=== PATIENT | male | born 1960 | race American Indian/Alaskan Native ===

== ENCOUNTER 2018-07-05 15:19 | Emergency (ER) | payer MEDICARE, BC ==
[2018-07-05 15:20] VITALS: BMI 27.3
[2018-07-05 15:33] VITALS: TEMP 98.9
--- NOTE | 2018-07-05 15:54 | ED PDOC ---
Arrival/HPI - General Historian: Patient - History of Present Illness Narrative History of Present Illness (Text): 07/05/18 15:51 57 year old male with a past medical history of hypertension, hypercholesterolemia, diabetes, pvd, and dilated cardiomyopathy presents to the emergency room with right and left lower quadrant abdominal pain for the past week. Patient describes it as sharp in nature and rates it a 8/10 in severity. Patient also reports an increase in pain after eating. Patient admits to constipation as well for the past three days. Of note, patient recently was placed back on Metformin after being off the medicine for a while. PMD: Dr. Montoya Medical history: htn, hpercholesterolemia, dm, pvd, dilated cardiomyopathy Allergies: Shellfish Surgical hx:Back surgery Time/Duration: 1 week Symptom Onset: Gradual Symptom Course: Unchanged Quality: Stabbing Severity Level: 8 Activities at Onset: Rest Context: Sitting <Arvind Barraza - Last Filed: 07/05/18 20:26> Past Medical History - Provider Review Nursing Documentation Reviewed: Yes - Past History Past History: Non-Contributing - Infectious Disease Hx of Infectious Diseases: None - Cardiac Hx Cardiac Disorders: No Hx Pacemaker: No - Pulmonary Hx Respiratory Disorders: No - Neurological Hx Neurological Disorder: No Hx Dementia: No Hx Paralysis: No - HEENT Hx HEENT Disorder: No - Renal Hx Renal Disorder: No - Endocrine/Metabolic Hx Endocrine Disorders: Yes Hx Diabetes Mellitus Type 2: Yes - Hematological/Oncological Hx Blood Disorders: No Hx Blood Transfusions: No - Integumentary Hx Dermatological Disorder: No - Musculoskeletal/Rheumatological Hx Musculoskeletal Disorders: Yes - Gastrointestinal Hx Gastrointestinal Disorders: No - Genitourinary/Gynecological Hx Genitourinary Disorders: No - Psychiatric Hx Psychophysiologic Disorder: No Hx Emotional Abuse: No Hx Physical Abuse: No Hx Substance Use: Yes (marijuana) - Anesthesia Hx Anesthesia: Yes Hx Anesthesia Reactions: No Hx Malignant Hyperthermia: No - Suicidal Assessment Feels Threatened In Home Enviroment: No <Arvind Barraza - Last Filed: 07/05/18 20:26> Family/Social History - Physician Review Nursing Documentation Reviewed: Yes Family/Social History: No Known Family HX Smoking Status: Former Smoker Hx Alcohol Use: Yes (SOCIAL) Hx Substance Use: Yes (marijuana) <Arvind Barraza - Last Filed: 07/05/18 20:26> Allergies/Home Meds <Christi,Arvind - Last Filed: 07/05/18 20:26> <Sree Tyler DO - Last Filed: 07/06/18 15:47> Allergies/Adverse Reactions: Allergies shellfish derived Adverse Reaction (Verified 07/05/18 15:33) ANGIOEDEMA Home Medications: Home Meds Medication Instructions Recorded Confirmed Cilostazol [Pletal] 100 mg PO BID 07/26/16 08/29/16 Ergocalciferol (Vitamin D2) 1.25 mg PO QWK 07/26/16 08/29/16 [Vitamin D] Review of Systems - Physician Review All systems were reviewed & negative as marked: Yes - Review of Systems Constitutional: Normal. absent: Fatigue Eyes: Normal, Vision Changes ENT: Normal. absent: Hearing Changes, Tinnitus Respiratory: Normal. absent: SOB, Cough, Sputum Cardiovascular: Normal. absent: Chest Pain, Palpitations, Syncope Gastrointestinal: Abdominal Pain, Constipation (x 3 days). absent: Nausea, Vomiting Musculoskeletal: Normal. absent: Arthralgias Skin: Normal. absent: Rash, Pruritis Neurological: Normal. absent: Headache, Dizziness Endocrine: Normal. absent: Diaphoresis, Polyuria Hemo/Lymphatic: Normal. absent: Adenopathy, Easy Bleeding Psychiatric: Normal. absent: Anxiety, Depression <Arvind Barraza - Last Filed: 07/05/18 20:26> Physical Exam Vital Signs Reviewed: Yes Vital Signs Temp Pulse Resp BP Pulse Ox 07/05/18 15:28 98.9 F 100 H 19 128/71 99 Temperature: Afebrile Blood Pressure: Normal Pulse: Tachycardic Respiratory Rate: Normal Appearance: Positive for: Well-Appearing, Non-Toxic, Comfortable Pain Distress: Mild Mental Status: Positive for: Alert and Oriented X 3. No: Confused, Agitated - Systems Exam Head: Present: Atraumatic. No: Normocephalic, Abrasion Pupils: Present: PERRL. No: Sluggish Extroacular Muscles: Present: EOMI. No: Gaze Palsy Conjunctiva: Present: Normal. No: Injected Mouth: Present: Moist Mucous Membranes. No: Dry, Normal Teeth Neck: Present: Normal Range of Motion, JVD. No: Meningeal Signs, Lymphadenopathy Respiratory/Chest: Present: Clear to Auscultation, Good Air Exchange. No: Wheez es, Decreased Breath Sounds Cardiovascular: Present: Regular Rate and Rhythm, Normal S1, S2. No: Murmurs, Tachycardic Abdomen: Present: Tenderness (LLQ AND RLQ), Normal Bowel Sounds. No: Distention, McBurney's Point Tender Upper Extremity: Present: Normal Inspection. No: Cyanosis, Edema Lower Extremity: Present: Normal Inspection. No: Edema, Marcy's Sign Neurological: Present: CN II-XII Intact, Speech Normal. No: Normal Cerebellar Funct Skin: Present: Dry, Normal Color. No: Rashes, Cold Psychiatric: Present: Alert, Oriented x 3, Normal Insight <Arvind Barraza - Last Filed: 07/05/18 20:26> Vital Signs Temp Pulse Resp BP Pulse Ox 07/05/18 15:28 98.9 F 100 H 19 128/71 99 <Sree Tyler DO - Last Filed: 07/06/18 15:47> Medical Decision Making ED Course and Treatment: 07/05/18 15:58 57 year old male with a past medical history of hypertension, hypercholesterolemia, diabetes, pvd, and dilated cardiomyopathy presents to the emergency room with right and left lower quadrant abdominal pain for the past week. Pancreatitis vs. Diverticulitis vs. Appendictis Plan: CBC CMP U/A Ab/pelvis ct with IV contrast Lipase IV Toradol <Arvind Barraza - Last Filed: 07/05/18 20:26> ED Course and Treatment: 07/05/18 16:36 Clare Cantu is a 57 year old male who presents to the emergency department with a complaint of 1 week duration lower abdominal pain. In agreement with residents note, which includes further HPI details. Patient was seen and evaluated with resident, came up with plan and treatment together. - RAD Interpretation Radiology Orders: 07/05/18 15:59 ABDOMEN & PELVIS [ABD & PELVIS IV CONTRAST ONLY] [CT] Stat - Medication Orders Current Medication Orders: Sodium Chloride (Sodium Chloride 0.9%) 1,000 mls @ 125 mls/hr IV .Q8H ONE Stop: 07/06/18 00:05 Ketorolac Tromethamine (Toradol) 15 mg IVP STAT STA Stop: 07/05/18 16:01 Discontinued Medications Sodium Chloride (Sodium Chloride 0.9%) 1,000 mls @ 250 mls/hr IV .Q4H ONE Stop: 07/05/18 20:05 <Sree Tyler DO - Last Filed: 07/06/18 15:47> - PA / TIPPLE TENDER / Resident Statement JACINTA has reviewed & agrees with the documentation as recorded. JACINTA has examined the patient and agrees with the treatment plan. <Sree Tyler DO - Last Filed: 07/06/18 15:47> Disposition/Present on Arrival - Present on Arrival Any Indicators Present on Arrival: Yes History of DVT/PE: No History of Uncontrolled Diabetes: Yes Urinary Catheter: No History of Decub. Ulcer: No History Surgical Site Infection Following: None - Disposition Have Diagnosis and Disposition been Completed?: Yes Disposition Time: 18:30 Patient Plan: Discharge <Arvind Barraza - Last Filed: 07/05/18 20:26> - Disposition Disposition Time: 18:10 <Sree Tyler DO - Last Filed: 07/06/18 15:47> - Disposition Diagnosis: Constipation, UTI (urinary tract infection) Disposition: HOME/ ROUTINE Condition: GOOD Discharge Instructions (ExitCare): Constipation, Adult (DC), Asymptomatic Bacteriuria Additional Instructions: CLARE CANTU, thank you for letting us take care of you today. The emergency medical care you received today was directed at your acute symptoms. If you were prescribed any medication, please fill it and take as directed. It may take several days for your symptoms to resolve. Return to the Emergency Department if your symptoms worsen, do not improve, or if you have any other problems. Please contact your doctor or call one of the physicians/clinics you have been referred to that are listed on the Patient Visit Information form that is included in your discharge packet. Bring any paperwork you were given at discharge with you along with any medications you are taking to your follow up visit. Our treatment cannot replace ongoing medical care by a primary care provider outside of the emergency department. Thank you for allowing the [facility] team to be part of your care today. Follow up with your primary care doctor in 3-4 days for re-evaluation and further management. Prescriptions: Docusate [Colace] 100 mg PO Q8 PRN #20 cap PRN Reason: Constipation Nitrofurantoin Macrocrystals [Macrobid] 100 mg PO BID #10 cap Referrals: [facility], [Non-Staff] - Follow up with primary Forms: [employer] (Greenlandic)
[2018-07-05] MEDS ORDERED: Sodium Chloride 0.9% 1,000 ML IV ONE ×2 (16:06→16:07)
[2018-07-05 16:48] LABS: BASO # 0.05 K/mm3 (0.0-2.0); BASO % 0.6 % (0.0-3.0); EOS # 0.2 (0.0-0.7); EOS % 2.4 % (1.5-5.0); GRAN # 5.05 (1.4-6.5); GRAN % 57.4 % (50.0-68.0); HEMOGLOBIN 14.9 g/dL (14.0-18.0); LYMPH # 2.8 (1.2-3.4); LYMPH % 32.1 % (22.0-35.0); MEAN CELL VOLUME 88.2 fl (80.0-105.0); MEAN CORPUSCULAR HEMOGLOBIN 28.8 pg (25.0-35.0); MEAN CORPUSCULAR HGB CONC 32.7 g/dl (31.0-37.0); MEAN PLATELET VOLUME 11.1 fl (7.0-11.0); MONO # 0.7 (0.1-0.6); MONO % 7.5 % (1.0-6.0); RBC 5.17 10^6/uL (3.5-6.1); RED CELL DISTRIBUTION WIDTH 14.3 % (11.5-14.5); WHITE BLOOD COUNT 8.8 10^3/uL (4.5-11.0)
[2018-07-05 17:01] LABS: ALB/GLOB RATIO 1.1 (1.1-1.8); ALBUMIN 3.8 g/dL (3.0-4.8); ALT/SGPT 32 U/L (7-56); AST/SGOT 25 U/L (17-59); BLOOD UREA NITROGEN 13 mg/dL (7-21); CALCIUM 9.8 mg/dL (8.4-10.5); GFR NON-AFRICAN AMERICAN > 60; LIPASE 484 U/L (23-300)
[2018-07-05 17:10] LABS: PH,URINE 6.5 (4.7-8.0); URINE APPEARANCE CLEAR (CLEAR); URINE BILIRUBIN SMALL (NEGATIVE); URINE BLOOD TRACE-INTACT (NEGATIVE); URINE COLOR YELLOW (YELLOW); URINE GLUCOSE (UA) NEGATIVE (NEGATIVE); URINE LEUKOCYTE ESTERASE NEGATIVE Leu/uL (NEGATIVE); URINE PROTEIN >=300 mg/dL (<30 mg/dL)
[2018-07-05 17:22] LABS: URINE WBC 0 - 2 /hpf (0-6)
[2018-07-05 17:23] LABS: URINE BACTERIA MOD (NEG)
[2018-07-05] MEDS ORDERED: Iohexol 350 MG/100 ML VIAL ONE (17:27)
--- NOTE | 2018-07-05 18:10 | CT ---
Date of service: 07/05/2018 PROCEDURE: CT Abdomen and Pelvis with contrast HISTORY: diffuse abdominal pain COMPARISON: None. TECHNIQUE: Intravenous contrast dose: 100 cc Omnipaque 350 Radiation dose: Total exam DLP = 909.93 mGy-cm. This CT exam was performed using one or more of the following dose reduction techniques: Automated exposure control, adjustment of the mA and/or kV according to patient size, and/or use of iterative reconstruction technique. FINDINGS: LOWER THORAX: Unremarkable. LIVER: Unremarkable. No gross lesion or ductal dilatation. GALLBLADDER AND BILE DUCTS: Cholelithiasis without CT evidence of acute cholecystitis. Finding confirmed on prior abdominal ultrasound performed 12/13/2016 PANCREAS: Unremarkable. No gross lesion or ductal dilatation. SPLEEN: Unremarkable. ADRENALS: Unremarkable. No mass. KIDNEYS AND URETERS: Unremarkable. No hydronephrosis. No solid mass. VASCULATURE: Atherosclerotic calcification and mural plaque present no evidence of abdominal aortic aneurysm. BOWEL: Unremarkable. No obstruction. No gross mural thickening. APPENDIX: A normal appendix is visualized in it's entirety. PERITONEUM: Unremarkable. No free fluid. No free air. LYMPH NODES: Unremarkable. No enlarged lymph nodes. BLADDER: Decompressed urinary bladder. No gross abnormalities. REPRODUCTIVE: Penile prosthesis and associated para from nearly including reservoir noted. BONES: No acute fracture. Postoperative findings from laminectomy and fusion noted L3, L4, L5 and S1. No evidence of orthopedic hardware failure. OTHER FINDINGS: Small defect in the posterior lateral abdominal wall musculature on the left with herniation of fat into the subcutaneous tissues. This appears at the level of the midpole left kidney. The kidney is unaffected IMPRESSION: No acute findings related to/accounting for the clinical presentation. Cholelithiasis without CT evidence of acute cholecystitis. Similar findings identified previously. Additional benign and/or incidental findings described above.
[2018-07-05 18:40] VITALS: BP 124/77; PULSE 90; O2SAT 98
[2018-07-05 18:56] VITALS: RESP 20
== END 2018-07-05 18:43 | disposition home or self-care (01) ==
LOC: ED 15:19
DX: K59.00 Constipation, unspecified (principal); N39.0 Urinary tract infection, site not specified; I10 Essential (primary) hypertension; E78.00 Pure hypercholesterolemia, unspecified; E11.9 Type 2 diabetes mellitus without complications
CPT/HCPCS: 74177; 80053; 81001; 83690; 85025; 96361; 96374; 99284; J1885; J7030; Q9967

== ENCOUNTER 2018-07-15 15:18 | Inpatient (IN) | payer MEDICARE, BC ==
[2018-07-15 15:26] VITALS: BMI 26.7
--- NOTE | 2018-07-15 15:54 | ED PDOC ---
Arrival/HPI - General Chief Complaint: Abdominal Pain Time Seen by Provider: 07/15/18 15:32 Historian: Patient - History of Present Illness Narrative History of Present Illness (Text): 07/15/18 15:52 A 57 year old male, whose past medical history includes UTI, hypertension, hypercholesterolemia, diabetes, pvd, and dilated cardiomyopathy, presents to the emergency department complaining of abdominal pain and constipation for 1 week. Patient reports here was here not long ago for similar complaint. While here, patient had Abd/Pelvis CT and Urinalysis performed, and was diagnosed with a UTI and constipation. Patient was prescribed antibiotics to be taken for 5 days. However, patient states symptoms have not change, and last good bowel movement was approximately 10 days ago. Patient denies any diarrhea, or any other complai nts at this time. PMD: Dr. Goldman Past Medical History - Provider Review Nursing Documentation Reviewed: Yes - Past History Past History: Non-Contributing - Infectious Disease Hx of Infectious Diseases: None - Cardiac Hx Cardiac Disorders: No - Pulmonary Hx Respiratory Disorders: No - Neurological Hx Neurological Disorder: No - HEENT Hx HEENT Disorder: No - Renal Hx Renal Disorder: No - Endocrine/Metabolic Hx Endocrine Disorders: Yes Hx Diabetes Mellitus Type 2: Yes - Hematological/Oncological Hx Blood Disorders: No - Integumentary Hx Dermatological Disorder: No - Musculoskeletal/Rheumatological Hx Musculoskeletal Disorders: Yes - Gastrointestinal Hx Gastrointestinal Disorders: No - Genitourinary/Gynecological Hx Genitourinary Disorders: No - Psychiatric Hx Psychophysiologic Disorder: No Hx Substance Use: Yes (marijuana) - Anesthesia Hx Anesthesia: Yes Hx Anesthesia Reactions: No Hx Malignant Hyperthermia: No - Suicidal Assessment Feels Threatened In Home Enviroment: No Family/Social History - Physician Review Nursing Documentation Reviewed: Yes Family/Social History: No Known Family HX Smoking Status: Former Smoker Hx Alcohol Use: Yes (SOCIAL) Hx Substance Use: Yes (marijuana) Allergies/Home Meds Allergies/Adverse Reactions: Allergies shellfish derived Adverse Reaction (Verified 07/05/18 15:33) ANGIOEDEMA Home Medications: Home Meds Medication Instructions Recorded Confirmed Cilostazol [Pletal] 100 mg PO BID 07/26/16 08/29/16 Ergocalciferol (Vitamin D2) 1.25 mg PO QWK 07/26/16 08/29/16 [Vitamin D] Review of Systems - Physician Review All systems were reviewed & negative as marked: Yes - Review of Systems Constitutional: absent: Fevers Gastrointestinal: Abdominal Pain, Constipation. absent: Diarrhea Physical Exam - Physical Exam Narrative Physical Exam (Text): Gen: VS reviewed, alert, well developed, well nourished, nontoxic, mild distress. ENT: normal pharynx. Eye: EOMI, PERRL. Neck: no JVD, supple, no adenopathy. CV: regular rate, regular rhythm, no rubs, no murmur, no gallops, S1, S2, pulses equal and strong. Pulm: no distress, clear to auscultation, no wheeze, no rhonchi, breath sounds equal, no rales. Abd: soft, mild epigastric and LLQ tenderness, no guarding, no rebound, no rigidity, normal bowel sounds. Ext: no edema. Skin: good color, no rash, no cyanosis. Psych: responds appropriately to questions, normal affect. Neuro: oriented x 3, CN2-12 intact grossly, motor intact, sensation intact. Vital Signs Reviewed: Yes Vital Signs Temp Pulse Resp BP Pulse Ox 07/15/18 15:32 98.2 F 80 18 114/63 99 07/15/18 15:26 98.2 F 80 18 114/63 99 Temperature: Afebrile Blood Pressure: Normal Pulse: Regular Respiratory Rate: Normal Appearance: Positive for: Well-Appearing, Non-Toxic, Comfortable Pain Distress: None Mental Status: Positive for: Alert and Oriented X 3 Medical Decision Making ED Course and Treatment: 07/15/18 15:53 Impression: 57 year old male with abdominal pain and constipation. Plan: -- Reassess and disposition Prior Visits: Notes and results from previous visits were reviewed. Patient was last seen in the emergency department on 07/05/2018 for LLQ and RLQ pain. Progress Notes: 07/15/18 16:42 on re-eval patient appears to be balled over in pain, with the intensified pain will provide analgesic at this time which the patient did not require at initial bedside eval. 07/15/18 17:[address] goldman, patient to be admitted for inpt tx pancreatitis, ivf, pain control ddx including but not limited: alcoholic pancreatitis though unlikely as patient denies heavy drinking, gallstones, hypertriglycerides, medication induced 07/15/18 17:57 - EKG Interpretation EKG Interpretation (Text): 07/15/18 17:00 1609: nsr at 77 bpm, nml qrs, lvh, bbiphasi t wave in v2, nonspecific lateral flipped t waves Interpreted by ED Physician: Yes - Scribe Statement The provider has reviewed the documentation as recorded by the Jurgenibrody Wynn Provider Scribe Attestation: All medical record entries made by the Scribe were at my direction and perso kennedy dictated by me. I have reviewed the chart and agree that the record accurately reflects my personal performance of the history, physical exam, medical decision making, and the department course for this patient. I have also personally directed, reviewed, and agree with the discharge instructions and disposition. Disposition/Present on Arrival - Present on Arrival Any Indicators Present on Arrival: No History of DVT/PE: No History of Uncontrolled Diabetes: Yes Urinary Catheter: No History of Decub. Ulcer: No History Surgical Site Infection Following: None - Disposition Have Diagnosis and Disposition been Completed?: Yes Diagnosis: Pancreatitis Disposition: HOSPITALIZED Disposition Time: 17:55 Patient Plan: Admission Patient Problems: Current Active Problems Problem Status Onset Pancreatitis Acute Condition: STABLE Forms: [employer] (Lao)
[2018-07-15] MEDS ORDERED: Morphine 4 mg/ml ISec IVP STA (16:41)
[2018-07-15 17:18] LABS: BASO # 0.05 K/mm3 (0.0-2.0); BASO % 0.5 % (0.0-3.0); EOS # 0.4 (0.0-0.7); GRAN # 5.59 (1.4-6.5); GRAN % 57.2 % (50.0-68.0); HEMOGLOBIN 14.4 g/dL (14.0-18.0); LYMPH # 3.1 (1.2-3.4); LYMPH % 31.9 % (22.0-35.0); MEAN CELL VOLUME 89.5 fl (80.0-105.0); MEAN CORPUSCULAR HEMOGLOBIN 28.6 pg (25.0-35.0); MONO # 0.6 (0.1-0.6); MONO % 6.4 % (1.0-6.0); RBC 5.03 10^6/uL (3.5-6.1); RED CELL DISTRIBUTION WIDTH 14.5 % (11.5-14.5); WHITE BLOOD COUNT 9.8 10^3/uL (4.5-11.0)
[2018-07-15 17:36] LABS: TROPONIN I 0.03 ng/mL
[2018-07-15 17:37] LABS: ALB/GLOB RATIO 1.1 (1.1-1.8); ALBUMIN 3.7 g/dL (3.0-4.8); ALT/SGPT 24 U/L (7-56); AST/SGOT 25 U/L (17-59); BLOOD UREA NITROGEN 16 mg/dL (7-21); CALCIUM 9.5 mg/dL (8.4-10.5); GFR NON-AFRICAN AMERICAN > 60; LIPASE 2815 U/L (23-300)
[2018-07-15] MEDS ORDERED: Iohexol 350 MG/100 ML VIAL ONE (17:47)
[2018-07-15] MEDS ORDERED: Sodium Chloride 0.9% 1,000 ML IV SCH (18:00)
[2018-07-15 18:23] LABS: HDL CHOLESTEROL 43 mg/dL (29-60)
[2018-07-15 18:34] LABS: LDL CHOLESTEROL 111 mg/dL (0-129)
--- NOTE | 2018-07-15 18:40 | CARD ---
APPROVED REPORT Date of service: 07/15/2018 EKG Measurement Heart [id number] <Conclusion> Normal sinus rhythm Left axis deviation Minimal voltage criteria for LVH, may be normal variant Prolonged QT Abnormal ECG
[2018-07-15] MEDS ORDERED: Dextrose 50% SYRINGE Inj (50 ml) IV PRN ×2 (19:08→20:16)
--- NOTE | 2018-07-15 19:13 | US ---
Date of service: 07/15/2018 HISTORY: pain, ?gallstones COMPARISON: Comparison is made to the previous ultrasound of the abdomen dated 12/13/2016 TECHNIQUE: Sonographic evaluation of the right upper quadrant of the abdomen. FINDINGS: LIVER: Measures 16.9 cm in length. Increased echogenicity of the liver parenchyma. No mass. No intrahepatic bile duct dilatation. GALLBLADDER: Previously noted small gallstones in the previous study is not clearly seen in the current exam. No evidence of acute cholecystitis. COMMON BILE DUCT: Measures 6.3 mm. No stones. No dilatation. PANCREAS: Unremarkable as visualized. No mass. No ductal dilatation. RIGHT KIDNEY: Measures 11.7 x 4.9 x 5.1 Cm in length. Normal echogenicity. No calculus, mass, or hydronephrosis. AORTA: No aneurysmal dilatation. IVC: Unremarkable. OTHER FINDINGS: Possible mildly enlarged lymph node adjacent to the pancreas measures 1.2 centimeter. IMPRESSION: No ultrasound evidence of gallstones or acute cholecystitis. 1.2 centimeter soft tissue nodule adjacent to the pancreas may represent enlarged lymph node. Mild hepatomegaly and increased echogenicity of the liver.
[2018-07-15] MEDS ORDERED: Insulin Lispro (humaLOG) MEDIUM Coverage SC SCH (19:15)
[2018-07-15] MEDS ORDERED: Lactated Ringer's 1,000 ML IV SCH (19:15)
[2018-07-15] MEDS ORDERED: Magnesium Citrate Oral SOL (300 ml) PO ONE (22:22)
[2018-07-15] MEDS: Insulin Lispro (humaLOG) MEDIUM Coverage SC SCH (22:34)
[2018-07-15] MEDS: Morphine 2 mg/ml ISec IVP PRN (22:44)
[2018-07-15 23:17] LABS: BARBITURATES, UR NEGATIVE (NEGATIVE); BENZODIAZEPINES, UR NEGATIVE (NEGATIVE); OPIATES, UR POSITIVE (NEGATIVE); PHENCYCLIDINE, UR NEGATIVE (NEGATIVE)
--- NOTE | 2018-07-16 02:52 | HP ---
DATE OF EXAM: 07/15/2018 HISTORY OF PRESENT ILLNESS: The patient is a 57-year-old male, who presented to the emergency room today with 2 weeks complaint of abdominal pain. The patient was seen about 10 days ago in the emergency room at [place] on 07/05/2018, was told that the patient has urinary tract infection. The patient presented with the same complaints of mid abdominal pain for 2 weeks. The patient also complained of constipation. The patient was given medication for constipation and urinary tract infection on 07/05/2018, but the patient states that the symptoms has not improved and still having the same symptoms of abdominal pain and constipation. The patient states that his last bowel movement was 5 days ago. The patient was given Macrobid and Colace about 10 days ago but the patient's symptoms did not improve and the patient's symptoms persisted, unchanged in the last 10 days, and the patient came back for the same complaints as noted above. REVIEW OF SYSTEMS: A 14-system review was done, pertinent positive and negative dictated above. CODE STATUS: Full code. LIVING WILL ADVANCE DIRECTIVE: None. ALLERGIES: SHELLFISH. Height is 6 feet 4 inches. Weight is 220. BMI is 27. MEDICATIONS: The patient's corrected home medications are Pletal 100 mg twice a day, Flexeril 5 mg twice a day p.r.n. by Dr. Gee Ding, Amaryl 4 mg twice a day, metformin 500 mg once a day, Januvia 100 mg daily, Lipitor 40 mg daily, Lyrica 50 mg at bedtime, magnesium oxide 400 mg twice a day, Lopressor, metoprolol tartrate 25 mg twice a day, Prilosec 20 mg twice a day as needed, vitamin D2 at 50,000 units weekly, Zestril 20 mg daily, Colace 100 mg t.i.d., and Macrobid 100 mg twice a day. SOCIAL HISTORY: Positive for marijuana use. Positive for social alcohol. Positive for former smoker. FAMILY HISTORY Positive for diabetes and hypertension. OCCUPATIONAL HISTORY: Disabled. PAST MEDICAL AND SURGICAL HISTORY: Significant for peripheral vascular disease, history of type 2 diabetes mellitus, history of hypertension and hyperlipidemia, history of hypovitaminosis D, history of constipation, history of cholelithiasis, history of hypomagnesemia, history of diabetic neuropathy, history of degenerative disk disease of the lumbar spine, history of marijuana use, history of penile prosthesis implant, history of spinal surgery, history of social alcohol use, history of marijuana use. The patient's past medical history is significant for history of normocytic anemia, history of uncontrolled diabetes mellitus, history of proteinuria and polyuria. The past medical history is also significant for history of lumbar and cervical spine degenerative disk disease with fusion of L3 to S1, history of lumbar spine facet arthropathy, foramen stenosis, and foramen narrowing. History of multilevel cervical spine degenerative disk disease with spinal central stenosis, disk protrusion and neural foramen stenosis. History of left ventricular ejection fraction of 35%. History of osteomyelitis of the left foot big toe. History of lumbar spine degenerative disk disease with disk herniation. History of cardiac catheterization, history of left ventricular ejection fraction of 50% on the cardiac catheterization. History of nonobstructive coronary artery disease with intimal irregularity. History of hypertensive cardiovascular disease,. Past medical history is significant for left foot great toe osteomyelitis, obesity, history of left peroneal artery angioplasty and left tibioperoneal trunk angioplasty, history of poor compliance, and history of erectile dysfunction and impotency. PHYSICAL EXAMINATION: GENERAL: The patient is seen in room 370, bed 2. The patient is seen lying in the bed. VITAL SIGNS: T-max 98.2, heart rate 80-75, blood pressure 114/63 to 137/83, respirations 18, and O2 sat 96%-98%. HEENT: Head examination; normocephalic, atraumatic. HEENT examination shows pink conjunctivae. Anicteric sclerae. No oropharyngeal lesion. NECK: No neck rigidity. CHEST: Kyphosis. LUNGS: Examination shows no audible crackles, rales or wheezing. CARDIOVASCULAR: S1 and S2, regular rhythm. Questionable soft systolic murmur in left sternal border, right second intercostal space, left second intercostal space. ABDOMEN: Soft and protuberant. Positive periumbilical tenderness. Positive voluntary guarding. No rebound tenderness. Positive decreased bowel sounds. GENITALIA: Male. RECTAL: Examination is deferred. EXTREMITIES: Shows no pitting edema, no calf tenderness, no Homans' sign. NEUROLOGIC: The patient is alert, awake, and oriented x3. Cranial nerves II-XII intact. Motor strength 5/5 in upper and lower extremities. Gait examination not tested. VASCULAR: Palpable pulses. PSYCHIATRIC: Examination is negative. DIAGNOSTIC DATA: CBC shows WBC 9.8, hemoglobin/hematocrit 14.4/45, and platelets 256. Sodium 143, potassium 4.3, chloride 105, CO2 of 30, anion gap 11, BUN 16, creatinine 1.1, GFR greater than 60, glucose 124, and calcium 9.5. LFTs are normal. Troponin is negative. Cholesterol 168, triglyceride 90, LDL 111, HDL 43. Lipase is 2815. Alcohol level is 10. The patient's lab data from 07/05/2018 was reviewed. At that time, the patient's lipase was 484, but today lipase is 2815. EKG shows sinus rhythm, left anterior hemiblock. The patient was treated in the emergency room with Protonix IV, 4 mg of morphine, and the patient was advised to be admitted. IMPRESSION: 1. Abdominal pain for more than 2 weeks. 2. Constipation. 3. Possible gallstone pancreatitis. 4. Cuz-clsmmfl-tdbumxgyp diabetes mellitus with hyperglycemia. 5. Left anterior hemiblock. 6. History of cholelithiasis. 7. Peripancreatic lymphadenopathy. 8. Hepatomegaly with increased hepatic echogenicity. 10. Hypertensive cardiovascular disease. 11. History of hyperlipidemia. 12. Questionable urinary tract infection. 13. History of hypertension. 14. History of hypovitaminosis D. 15. History of diabetes mellitus. 16. History of peripheral vascular disease. PLAN: At this time, the patient has been ordered serial labs, serial amylase and lipase, CMP, LFT, magnesium phosphorus, and hemoglobin A1c. Repeat CBC, fructosamine glucose ordered, GI evaluation ordered. The patient is being ordered Fleet enema x1. The patient has been ordered and started on Humalog medium dose sliding scale coverage every 6 hours. Fingerstick blood sugar every 6 hours. The patient will be continued on IV fluid Ringer's lactate at 100 mL an hour, Lovenox 40 mg subcu daily for DVT prophylaxis, morphine 2 mg IV every 6 hours p.r.n., Protonix 40 IV every 12 hours, Tylenol suppository every 6 hours p.r.n., Zofran 4 mg IV every 4 hours p.r.n. The patient is on n.p.o. diet from the emergency room. FAUSTINA de la cruz, SCDs, out of bed to chair ad-gio. Physical therapy, occupational therapy, urinalysis, and urine culture all ordered.. At present, the patient was updated about his condition, diagnosis, treatment plan, and management plan at length. The patient was explained about the diagnosis, diagnostic test results. The patient was explained about the details of his medical condition at length, which he acknowledged and understand. The patient was explained about need for further diagnostic therapeutic intervention, which he acknowledged and understand. The patient was explained about need for further diagnostic therapeutic intervention, need for further subspecialty consultation. All was explained to the patient in layman's language. All questions concerned answered. Dictated and electronically signed, not read. Freeman Montoya MD
[2018-07-16 07:10] LABS: ALB/GLOB RATIO 1.1 (1.1-1.8); ALBUMIN 3.3 g/dL (3.0-4.8); ALT/SGPT 26 U/L (7-56); AMYLASE 167 U/L (35-125); AST/SGOT 20 U/L (17-59); BILIRUBIN,DIRECT 0.2 mg/dL (0.0-0.4); BLOOD UREA NITROGEN 12 mg/dL (7-21); GFR NON-AFRICAN AMERICAN > 60; LIPASE 589 U/L (23-300); URIC ACID 4.5 mg/dL (3.5-8.5)
[2018-07-16 07:14] LABS: BASO # 0.02 K/mm3 (0.0-2.0); BASO % 0.3 % (0.0-3.0); EOS # 0.3 (0.0-0.7); EOS % 3.4 % (1.5-5.0); GRAN # 4.64 (1.4-6.5); GRAN % 59.7 % (50.0-68.0); HEMOGLOBIN 13.9 g/dL (14.0-18.0); LYMPH # 2.3 (1.2-3.4); LYMPH % 30.1 % (22.0-35.0); MEAN CELL VOLUME 89.1 fl (80.0-105.0); MEAN CORPUSCULAR HEMOGLOBIN 28.7 pg (25.0-35.0); MEAN CORPUSCULAR HGB CONC 32.2 g/dl (31.0-37.0); MEAN PLATELET VOLUME 11.1 fl (7.0-11.0); MONO # 0.5 (0.1-0.6); MONO % 6.5 % (1.0-6.0); RBC 4.85 10^6/uL (3.5-6.1); RED CELL DISTRIBUTION WIDTH 14.6 % (11.5-14.5); WHITE BLOOD COUNT 7.8 10^3/uL (4.5-11.0)
[2018-07-16] MEDS ORDERED: Insulin Lispro (humaLOG) MEDIUM Coverage SC SCH (07:30)
[2018-07-16] MEDS: Insulin Lispro (humaLOG) MEDIUM Coverage SC SCH ×3 (08:07→21:36)
[2018-07-16] MEDS: Lactated Ringer's 1,000 ML IV SCH (10:15)
[2018-07-16] MEDS: Enoxaparin 40 mg Syringe SC SCH (10:15)
--- NOTE | 2018-07-16 11:50 | CP.PCM.PN ---
Subjective - Date & Time of Evaluation Date of Evaluation: 07/16/18 Time of Evaluation: 08:30 - Subjective Subjective: Clinical Care Coordination Note Seen and examined 57 y/o AAM arrived to ED with c/o diffuse bilateral lower abdominal pain for 2wks. Patient seen in ED 2 wks ago treated for UTI and noted to be constipated and discharged. PMHx HTN, DM, PVD, HLD. Patient currently admitted for pancreatitis r/o cholecystitis. Alk Phos-135, Amylase-167 and Lipase-589. Objective - Vital Signs/Intake and Output Vital Signs (last 24 hours): Temp Pulse Resp BP Pulse Ox 98 F 91 H 18 145/97 H 98 07/16/18 08:24 07/16/18 08:24 07/16/18 08:24 07/16/18 08:24 07/16/18 08:24 Intake and Output: BM x 2 today very large as per RN - Medications Medications: Current Medications Acetaminophen (Tylenol 650 Mg Supp) 650 mg RC Q6H PRN PRN Reason: TEMP>=99.5F Dextrose (Dextrose 50% Inj) 0 ml IV STAT PRN; Protocol PRN Reason: Hypoglycemia Protocol Dextrose (Dextrose 50% Inj) 0 ml IV STAT PRN; Protocol PRN Reason: Hypoglycemia Protocol Enoxaparin Sodium (Lovenox) 40 mg SC DAILY [facility]; Protocol Last Admin: 07/16/18 10:15 Dose: 40 mg Dextrose (Dextrose 5% In Water 1000 Ml) 1,000 mls @ 0 mls/hr IV .Q0M PRN; Protocol PRN Reason: Hypoglycemia Protocol Dextrose (Dextrose 5% In Water 1000 Ml) 1,000 mls @ 0 mls/hr IV .Q0M PRN; Protocol PRN Reason: Hypoglycemia Protocol Lactated Ringer's (Lactated Ringer's) 1,000 mls @ 75 mls/hr IV .[id number] [facility] Last Admin: 07/16/18 10:15 Dose: 75 mls/hr Insulin Human Lispro (Humalog Med) 0 units SC Q6H [facility]; Protocol Last Admin: 07/16/18 08:07 Dose: Not Given Morphine Sulfate (Morphine) 2 mg IVP Q6H PRN PRN Reason: Pain, moderate (4-7) Last Admin: 07/15/18 22:44 Dose: 2 mg Ondansetron HCl (Zofran Inj) 4 mg IVP Q4H PRN PRN Reason: Nausea/Vomiting Pantoprazole Sodium (Protonix Inj) 40 mg IVP Q12 [facility] Last Admin: 07/16/18 10:15 Dose: 40 mg - Labs Labs: 07/16/18 06:40 07/16/18 06:40 - Constitutional Appears: Well, Non-toxic, No Acute Distress - Head Exam Head Exam: ATRAUMATIC, NORMOCEPHALIC - Eye Exam Eye Exam: EOMI, Normal appearance, PERRL Pupil Exam: NORMAL ACCOMODATION - Neck Exam Neck Exam: Full ROM, Normal Inspection - Respiratory Exam Respiratory Exam: Clear to Ausculation Bilateral, NORMAL BREATHING PATTERN - Cardiovascular Exam Cardiovascular Exam: REGULAR RHYTHM, +S1, +S2 - GI/Abdominal Exam GI & Abdominal Exam: Firm, Normal Bowel Sounds - Rectal Exam Rectal Exam: Deferred - Extremities Exam Extremities Exam: Full ROM, Normal Capillary Refill Additional comments: MOSES's, no obvious deformity, bilateral UE/LE=5/5, ambulatory - Back Exam Back Exam: NORMAL INSPECTION - Neurological Exam Neurological Exam: Alert, Awake, CN II-XII Intact, Normal Gait, Oriented x3 Neuro motor strength exam: Left Upper Extremity: 5, Right Upper Extremity: 5, Left Lower Extremity: 5, Right Lower Extremity: 5 - Psychiatric Exam Psychiatric exam: Normal Affect, Normal Mood - Skin Skin Exam: Dry, Warm Assessment and Plan - Assessment and Plan (Free Text) Assessment: Seen and examined 57 y/o AAM arrived to ED with c/o diffuse bilateral lower abdominal pain for 2wks. Patient seen in ED 2 wks ago treated for UTI and noted to be constipated and discharged. PMHx HTN, DM, PVD, HLD. Patient currently admitted for pancreatitis r/o cholecystitis. Alk Phos-135, Amylase-167 and Lip ase-589. Today abdominal pain free, diet advanced to liquid, MRCP-pending. A: Pancreatitis r/o Cholecystitis Constipation Plan: P: MRCP pending Liquid diet VS as per protocol I/O GI/DVT prophylaxis Medications as per OCT PT eval pending Will continue to follow closely.
[2018-07-16 12:38] LABS: HEPATITIS B SURFACE AG Negative (NEGATIVE)
[2018-07-16 12:43] LABS: HEPATITIS A IGM NEGATIVE (NEGATIVE); HEPATITIS B CORE AB NEGATIVE (NEGATIVE)
[2018-07-16 12:55] LABS: HEPATITIS C ANTIBODY NEGATIVE (NEGATIVE)
--- NOTE | 2018-07-16 13:56 | PN ---
DATE: 07/16/2018 LOCATION: The patient is in room 370, bed 2. SUBJECTIVE: Overnight nurse's notes were reviewed. The patient refused Fleet's enema, but the patient took a bottle of magnesium citrate with the patient having a large bowel movement with resolution of the patient's abdominal pain as per the nurse's notes. Overnight nurse's notes were reviewed. PHYSICAL EXAMINATION: VITAL SIGNS: T-max 98 degrees Fahrenheit, heart rate 84, blood pressure 134/83, respirations 18, O2 sat 95%. HEENT: Head normocephalic, atraumatic. [place] conjunctivae. Anicteric sclerae. Dry oral mucosa. NECK: No neck rigidity. CHEST: Kyphosis. LUNGS: No audible crackle, rales or wheezing. CARDIOVASCULAR: S1, S2, regular rhythm. No audible murmur, gallop or rub at this time. ABDOMEN: Soft. Positive bowel sounds. Protuberant. Positive periumbilical tenderness. Mild epigastric tenderness. No right upper quadrant tenderness. No guarding. No rigidity. No rebound tenderness. GENITALIA: Male. RECTAL: Examination is deferred. EXTREMITIES: No pitting edema. No calf tenderness. No Homans' sign. NEUROLOGIC: The patient is alert, awake, oriented x3. Cranial nerves II through XII intact. Gait examination is independent. VASCULAR: Palpable pulses. PSYCHIATRIC: Examination is negative. MUSCULOSKELETAL: Examination is as per the body mass index. DIAGNOSTIC DATA: On 07/16/2018, WBC 7.8, hemoglobin/hematocrit 13.9/43.2, platelet 235. Sodium 140, potassium 4.4, chloride 107, CO2 of 30, BUN 12, creatinine 0.9, glucose 138, calcium 9.0, phosphorus 2.3, magnesium 2.1, alk phos 135, amylase 167, lipase 589. Urine drug screen positive for cannabinoids and positive for opiates. IMPRESSION: 1. Most probable acute gallstone pancreatitis with elevated amylase, lipase. 2. Cholelithiasis. 3. Constipation. 4. Abdominal pain secondary to above. 5. Acute pancreatitis with elevated amylase, lipase. 6. History of type 2 diabetes mellitus. 7. Hyperglycemia. 8. History of marijuana use with urine drug screen positive for cannabinoids. 9. History of hypertension. 10. History of hyperlipidemia. 11. Hypovitaminosis D. 12. History of peripheral vascular disease. 13. History of lower extremity angioplasty. 14. History of osteomyelitis of the toe. 1. Abdominal pain for more than 2 weeks. 2. Constipation. 3. Possible gallstone pancreatitis. 4. Enu-eizlbue-oxhjstpyb diabetes mellitus with hyperglycemia. 5. Left anterior hemiblock. 6. History of cholelithiasis. 7. Peripancreatic lymphadenopathy. 8. Hepatomegaly with increased hepatic echogenicity. 10. Hypertensive cardiovascular disease. 11. History of hyperlipidemia. 12. Questionable urinary tract infection. 13. History of hypertension. 14. History of hypovitaminosis D. 15. History of diabetes mellitus. 16. History of peripheral vascular disease. PLAN: At this time, the patient is to be continued on IV fluid, IV proton pump inhibitor, GI and DVT prophylaxis. The patient will be started on clear liquid diet as the patient's symptoms are improving and as the patient has a bowel movement since the patient was constipated for more than five days. The patient will be started on clear liquid diet. We are awaiting Gastroenterology evaluation and recommendation for further treatment and diagnostic recommendation and therapeutic intervention. The patient will be continued on IV fluid, IV proton pump inhibitor, IV antiemetics, fingerstick blood sugar, sliding scale coverage. Hemoglobin A1c is pending. Vitamin D 25-hydroxy level is pending. Lipid panel was ordered yesterday, which shows elevated LDL. At present the patient has been updated about his condition, diagnosis, treatment plan, treatment options. Depending upon the further recommendation by Gastroenterology and if the patient's pancreatitis is most likely secondary to gallstones, the patient has been advised of possible elective versus emergency cholecystectomy. But it all depends upon the patient's subjective and objective data and as per recommendation by all the physicians involved in the care of the patient. The patient has been updated about all the details and all questions concerned answered. Dictated and electronically signed, not read. Freeman Montoya MD [facility]
--- NOTE | 2018-07-16 18:35 | CON ---
DATE: 07/16/2018 GASTROENTEROLOGY CONSULTATION REQUESTING PHYSICIAN: Dr. Montoya. REASON FOR CONSULTATION: I have been asked to see this 57-year-old male with history of diabetes mellitus, who comes to the hospital with 2 weeks of mid abdominal pain. The patient was seen in the emergency room at 11 days ago and was told that he had a urinary tract infection. Workup at that time with a CT scan of the abdomen revealed gallstones. The patient states that the abdominal pain persisted and became somewhat worse, which prompted him to come to the emergency room. Routine blood work in the emergency room shows the patient to have an elevated lipase level in the 2000 range. He denies alcohol use. The patient states that he has had some constipation with his last bowel movement 5 days ago. The patient was given a laxative with bowel movement since his hospitalization and states that his abdominal pain has essentially resolved. An ultrasound of the abdomen performed on this hospitalization showed the absence of gallstones in the presence of a 1.2 cm soft tissue mass adjacent to the pancreas, possibly a lymph node. The patient denies any weight loss, nausea, vomiting, fevers, chills, jaundice or dark urine. He denies alcohol use. He does smoke marijuana. 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 SOCIAL HISTORY: He denies alcohol abuse. He smokes marijuana. He denies tobacco use. MEDICATIONS AT HOME: Include Pletal, Flexeril, Amaryl, metformin, Januvia, Lipitor, Lyrica, mag oxide, Lopressor, metoprolol, Prilosec, vitamin D, Zestril, Colace and Macrobid. PHYSICAL EXAMINATION: GENERAL: Well-developed male, lying in bed, in no acute distress. VITAL SIGNS: Reveal A temperature of 98, blood pressure 145/97, heart rate 91. HEENT: Reveal sclerae to be white. Conjunctivae pink. NECK: Supple. CHEST: Lungs are clear. CARDIOVASCULAR: Heart exam reveals a regular rate and rhythm. ABDOMEN: Soft, nontender. EXTREMITIES: Show no edema. LABORATORY DATA: Revealed white blood cell count 7.8, hemoglobin 13.9. Chemistries reveal blood sugar of 138. AST, ALT normal. Alkaline phosphatase of 135, total bilirubin of 0.4, amylase of 167, lipase of 589, on admission to the hospital, his lipase was 2815. IMPRESSION: A 57-year-old male with 2 weeks of abdominal pain with elevated amylase and lipase, history of gallstones and a 1.2 cm soft tissue mass seen on ultrasound adjacent to the pancreas. I am uncertain as to whether the patient has acute pancreatitis. He most likely passed a gallstone. His symptoms have resolved after taking a laxative. The patient did state that he had not moved his bowels for 5 days. RECOMMENDATIONS: 1. We will request an MRCP with gadolinium for further evaluation of the pancreas. THE PATIENT IS ALLERGIC TO IODINE AND SHELLFISH, so this precludes getting a CT scan of the pancreas with pancreatic protocol. 2. We will start the patient on clear liquid diet. If the patient continues to be without abdominal pain, can advance his diet to a low-fat diet. 3. Consider elective cholecystectomy, as the patient did have gallstones. Andrew Rodriguez MD
[2018-07-16] MEDS: Morphine 2 mg/ml ISec IVP PRN (20:57)
[2018-07-17] MEDS: Cilostazol 100 mg Tab UD PO SCH ×3 (02:58→18:19)
[2018-07-17] MEDS: Morphine 2 mg/ml ISec IVP PRN ×2 (05:32→18:22)
[2018-07-17 06:11] LABS: BASO # 0.04 K/mm3 (0.0-2.0); BASO % 0.5 % (0.0-3.0); EOS # 0.2 (0.0-0.7); EOS % 2.9 % (1.5-5.0); GRAN # 4.34 (1.4-6.5); HEMOGLOBIN 14.3 g/dL (14.0-18.0); LYMPH # 2.2 (1.2-3.4); LYMPH % 29.5 % (22.0-35.0); MEAN CELL VOLUME 88.8 fl (80.0-105.0); MEAN CORPUSCULAR HEMOGLOBIN 29.7 pg (25.0-35.0); MEAN CORPUSCULAR HGB CONC 33.5 g/dl (31.0-37.0); MEAN PLATELET VOLUME 11.2 fl (7.0-11.0); MONO # 0.7 (0.1-0.6); MONO % 9.1 % (1.0-6.0); RBC 4.81 10^6/uL (3.5-6.1); RED CELL DISTRIBUTION WIDTH 14.3 % (11.5-14.5); WHITE BLOOD COUNT 7.5 10^3/uL (4.5-11.0)
[2018-07-17 06:33] LABS: URINE BILIRUBIN NEGATIVE (NEGATIVE); URINE BLOOD NEGATIVE (NEGATIVE); URINE GLUCOSE (UA) NEGATIVE (NEGATIVE); URINE LEUKOCYTE ESTERASE NEGATIVE Leu/uL (NEGATIVE); URINE PROTEIN 100 mg/dL (<30 mg/dL); URINE UROBILINOGEN 0.2 E.U./dL (<1 E.U./dL)
[2018-07-17 06:42] LABS: ALB/GLOB RATIO 1.1 (1.1-1.8); ALBUMIN 3.5 g/dL (3.0-4.8); ALT/SGPT 30 U/L (7-56); AMYLASE 169 U/L (35-125); AST/SGOT 21 U/L (17-59); BILIRUBIN,DIRECT 0.2 mg/dL (0.0-0.4); BLOOD UREA NITROGEN 9 mg/dL (7-21); CALCIUM 9.1 mg/dL (8.4-10.5); GFR NON-AFRICAN AMERICAN > 60; LIPASE 954 U/L (23-300)
[2018-07-17 06:55] LABS: URINE APPEARANCE CLEAR (CLEAR); URINE COLOR YELLOW (YELLOW)
[2018-07-17 07:28] LABS: URINE BACTERIA FEW (NEG); URINE EPITHELIAL CELLS 0 - 2 /hpf (0-5); URINE RBC 0 - 2 /hpf (0-2); URINE WBC 0 - 2 /hpf (0-6)
[2018-07-17] MEDS: Insulin Lispro (humaLOG) MEDIUM Coverage SC SCH ×4 (08:44→22:00)
[2018-07-17] MEDS: POLYETHYLENE GLYCOL 3350 17 GM/Dose PACKET PO SCH ×2 (09:44→18:23)
[2018-07-17] MEDS: Enoxaparin 40 mg Syringe SC SCH (09:45)
--- NOTE | 2018-07-17 10:05 | CP.PCM.PN ---
Subjective - Date & Time of Evaluation Date of Evaluation: 07/17/18 Time of Evaluation: 08:00 - Subjective Subjective: Clinical Care Coordination Note Seen and examined 57 y/o AAM with c/o diffuse bilateral lower abdominal pain for 2wks, recently treated for UTI and informed of constipation at [facility] then discharged home. Patient currently admitted for pancreatitis r/o cholecystitis, yesterday abdominal pain had resolved s/p large bowel movement diet advanced. Patient c/o bilateral diffuse lower quadrant abdominal pain during the night requiring pain medication, lipase today increased to 954. Patient is for MRCP this am and abdominal pain has resolved. PMHx HTN, DM, PVD, HLD. Patient denies fever, chills, JIMENEZ, dizziness, chest pain, abdominal pain resolved, no N/V/D, hematemesis or rectal bleeding. Objective - Vital Signs/Intake and Output Vital Signs (last 24 hours): Temp Pulse Resp BP Pulse Ox 98 F 77 18 151/93 H 97 07/17/18 06:00 07/17/18 09:44 07/17/18 06:00 07/17/18 09:44 07/17/18 06:00 Intake and Output: 07/17/18 07/17/18 06:59 18:59 Intake Total 2720 Output Total 600 Balance 2120 Patient will intermittently use bathroom without notifying RN - Medications Medications: Current Medications Acetaminophen (Tylenol 650 Mg Supp) 650 mg RC Q6H PRN PRN Reason: TEMP>=99.5F Atorvastatin Calcium (Lipitor) 10 mg PO DIN [facility] Cilostazol (Pletal) 100 mg PO BID [facility] Last Admin: 07/17/18 02:58 Dose: 100 mg Dextrose (Dextrose 50% Inj) 0 ml IV STAT PRN; Protocol PRN Reason: Hypoglycemia Protocol Dextrose (Dextrose 50% Inj) 0 ml IV STAT PRN; Protocol PRN Reason: Hypoglycemia Protocol Docusate Sodium (Colace) 100 mg PO Q8 [facility] Last Admin: 07/17/18 09:44 Dose: 100 mg Enoxaparin Sodium (Lovenox) 40 mg SC DAILY [facility]; Protocol Last Admin: 07/17/18 09:45 Dose: 40 mg Ergocalciferol (Drisdol 50,000 Intl Units Cap) 1 cap PO Q7D [facility] Dextrose (Dextrose 5% In Water 1000 Ml) 1,000 mls @ 0 mls/hr IV .Q0M PRN; Protocol PRN Reason: Hypoglycemia Protocol Dextrose (Dextrose 5% In Water 1000 Ml) 1,000 mls @ 0 mls/hr IV .Q0M PRN; Protocol PRN Reason: Hypoglycemia Protocol Lactated Ringer's (Lactated Ringer's) 1,000 mls @ 75 mls/hr IV .[id number] [facility] Last Admin: 07/16/18 10:15 Dose: 75 mls/hr Insulin Human Lispro (Humalog Med) 0 units SC ACHS [facility]; Protocol Last Admin: 07/17/18 08:44 Dose: Not Given Lisinopril (Zestril) 20 mg PO DAILY [facility] Last Admin: 07/17/18 09:44 Dose: 20 mg Metoprolol Tartrate (Lopressor) 25 mg PO BID [facility] Last Admin: 07/17/18 09:43 Dose: 25 mg Morphine Sulfate (Morphine) 2 mg IVP Q6H PRN PRN Reason: Pain, moderate (4-7) Last Admin: 07/17/18 05:32 Dose: 2 mg Ondansetron HCl (Zofran Inj) 4 mg IVP Q4H PRN PRN Reason: Nausea/Vomiting Pantoprazole Sodium (Protonix Inj) 40 mg IVP Q12 [facility] Last Admin: 07/17/18 09:45 Dose: 40 mg Polyethylene Glycol (Miralax) 17 gm PO BID [facility] Last Admin: 07/17/18 09:44 Dose: 17 gm - Labs Labs: 07/17/18 05:45 07/17/18 05:45 mifnrp=325 increase from prior - Constitutional Appears: Well, Non-toxic, No Acute Distress - Head Exam Head Exam: ATRAUMATIC, NORMOCEPHALIC - Eye Exam Eye Exam: EOMI, Normal appearance, PERRL Pupil Exam: NORMAL ACCOMODATION - ENT Exam ENT Exam: Mucous Membranes Moist, Normal Exam - Neck Exam Neck Exam: Full ROM, Normal Inspection - Respiratory Exam Respiratory Exam: Clear to Ausculation Bilateral, NORMAL BREATHING PATTERN - Cardiovascular Exam Cardiovascular Exam: REGULAR RHYTHM, +S1, +S2 - GI/Abdominal Exam GI & Abdominal Exam: Soft, Normal Bowel Sounds Additional comments: tenderness resolved - Extremities Exam Extremities Exam: Full ROM, Normal Capillary Refill - Neurological Exam Neuro motor strength exam: Left Upper Extremity: 5, Right Upper Extremity: 5, Left Lower Extremity: 5, Right Lower Extremity: 5 - Psychiatric Exam Psychiatric exam: Normal Affect, Normal Mood - Skin Skin Exam: Dry, Intact, Normal Color, Warm Assessment and Plan - Assessment and Plan (Free Text) Assessment: A: pancreatitis r/o cholecystitis abdominal pain constipation Plan: P: worsening pancreatitis r/o cholecystitis MRCP this am, clear liquid diet as per GI Abdominal pain, pain management Constipation resolved, bowel regiment as per GI will follow closely PT recommendation home
[2018-07-17] MEDS ORDERED: Gadodiamide 287 MG/ML VIAL (20ML) IV ONE (10:14)
--- NOTE | 2018-07-17 12:42 | PN ---
DATE: 07/17/2018 SUBJECTIVE: The patient is in room 370, bed 2. Overnight nurse's notes were reviewed. The patient insisted on being home yesterday. The patient insisted to the nurses to be discharged home and does not want to stay in the hospital as per the nurse's note. The patient also refuses antihypertensive medications as per the nurse's notes. Yesterday, I had a very lengthy discussion with the patient. The patient persistently wants to go home because the patient states that his only symptom and problem was abdominal pain which is significantly reduced. I have tried to explain to the patient about his clinical condition including inflammation of the pancreas and pancreatitis and need for further diagnostic therapeutic intervention. The patient has expressed and also threatened that he will leave the hospital if he wants to. I have advised the patient not to sign out against medical advise, explaining his medical condition in layman's language and details. But the patient still not 100% convinced to stay in the hospital. At present, the patient has just completed the MRCP, which was ordered by Gastroenterology. PHYSICAL EXAMINATION: VITAL SIGNS: T-max 98.4, heart rate 85-89, blood pressure 158/88, respiration 19, O2 sat 94%. HEAD: Normocephalic, atraumatic. HEENT examination shows pink conjunctivae. Anicteric sclerae, dry oral mucosa. No neck rigidity. CHEST: Examination kyphosis. LUNGS: Examination shows no audible crackle, rales or wheezing. CARDIOVASCULAR: S1, S2, regular rhythm. ABDOMEN: Soft. Positive bowel sounds. Mild periumbilical tenderness. Mild epigastric tenderness on deep palpation. No guarding. No rigidity. No rebound tenderness. No costovertebral angle tenderness. No palpable hepatosplenomegaly noted. GENITALIA: Male. RECTAL: Deferred. EXTREMITIES: Shows no pitting edema, no calf tenderness. No Homans sign. NEUROLOGIC: The patient is alert, awake, oriented x3, is able to move upper and lower extremity without assistance. Gait examination is not tested. VASCULAR: Palpable pulses. DIAGNOSTICS: On 07/17/2018, WBC 67.5, hemoglobin/hematocrit 14.3/42.7 platelets 214. Sodium 137, potassium 4.1, chloride 104, CO2 of 28, BUN 9, creatinine 0.9, glucose 148, calcium 9.1, phosphorus 2.7, magnesium 1.8. Hemoglobin A1c 7.7, fructosamine 213, alk phos 137. Amylase 169. Lipase has gone up to 959 which has gone up from yesterday. EKG shows normal sinus rhythm, left anterior hemiblock. The patient's ultrasound of the abdomen which was done on the day of admission shows gallstone, peripancreatic lymph node, hepatomegaly and hepatic steatosis. IMPRESSION AND PLAN: 1. Acute pancreatitis versus possible acute gallstone pancreatitis. 2. Symptomatic cholelithiasis. 3. Peripancreatic lymphadenopathy. 4. Hepatomegaly. 5. Hepatic steatosis with increased hepatic echogenicity and hepatomegaly. 9. Left anterior hemiblock. 10. Hypertension. 11. Possible and questionable poor compliance and noncompliance. 12. Uncontrolled type 2 diabetes mellitus with hyperglycemia, hemoglobin A1c of 7.7. 13. Slow resolving persistent acute pancreatitis with elevated amylase and lipase. 14. Abdominal pain. 15. Constipation. 16. History of hyperlipidemia. 17. History of hypovitaminosis D. 18. History of osteomyelitis of the left toe. 19. History of peripheral vascular disease and history of angioplasty. PLAN: At this time, the patient has been re-advised and updated about the patient's diagnostic test results. The patient's MRI and MRCP result is still pending, which will be reviewed when available. We are awaiting for further GI recommendations.. At present, the patient will be continued on the above therapeutic intervention. The patient will be continued on IV fluid, IV pain medications, IV proton pump inhibitor, IV antiemetics. The patient will be considered to be made n.p.o. except meds again today because of elevated lipase, which actually went up significantly as compared to yesterday. The patient has been updated about his diet change. The patient was explained and updated about the persistent inflammation of pancreas, which the patient was extensively explained about the details of his medical condition, diagnosis, treatment plan, need for continuation of the n.p.o. diet, need for the continuation of the intravenous fluid and the continuation of gross GI followup and need for further recommendation by Gastroenterology. Gastroenterology has already on their initial consultation has advised the patient to have cholecystectomy electively. Otherwise, emergently if the patient has symptoms. At present, the patient will be continued on IV fluid, IV pain medications, IV Zofran, IV proton pump inhibitor, fingerstick blood sugar sliding scale coverage. The patient has been updated about his condition. The patient has been updated about his test results, recommendation by all physician involved in the care of the patient in layman's language. All questions concerned were answered. Dictated and electronically signed, not read. Freeman Montoya MD
--- NOTE | 2018-07-17 13:59 | MRI ---
Date of service: 07/17/2018 PROCEDURE: MRI Abdomen with and without contrast HISTORY: COMPARISON: None available. TECHNIQUE: Multisequence, multiplanar MR images of the abdomen with and without gadolinium contrast enhancement. FINDINGS: LIVER: Unremarkable. GALLBLADDER: Unremarkable. SPLEEN: Unremarkable. PANCREAS: Unremarkable. ADRENALS: Unremarkable. KIDNEYS: Unremarkable. AORTA: No aneurysm. ASCITES: None. PERITONEUM: Unremarkable. LYMPH NODES: Unremarkable. OTHER FINDINGS: None. IMPRESSION: No evidence of pancreatic mass.
--- NOTE | 2018-07-17 14:19 | CP.PCM.PN ---
Subjective - Date & Time of Evaluation Date of Evaluation: 07/17/18 Time of Evaluation: 06:45 - Subjective Subjective: Jose Gonzalez PGY2 - Progress Note for Dr. Montoya's service Patient seen and examined this AM. Patient refusing antihypertensive medication. Patient indicates he has continued abdominal discomfort. Patient is scheduled for MRCP today. Objective - Vital Signs/Intake and Output Vital Signs (last 24 hours): Temp Pulse Resp BP Pulse Ox 98 F 77 18 151/93 H 97 07/17/18 06:00 07/17/18 09:44 07/17/18 06:00 07/17/18 09:44 07/17/18 06:00 Intake and Output: 07/17/18 07/17/18 06:59 18:59 Intake Total 2720 Output Total 600 Balance 2120 - Medications Medications: Current Medications Acetaminophen (Tylenol 650 Mg Supp) 650 mg RC Q6H PRN PRN Reason: TEMP>=99.5F Atorvastatin Calcium (Lipitor) 10 mg PO DIN [facility] Cilostazol (Pletal) 100 mg PO BID [facility] Last Admin: 07/17/18 02:58 Dose: 100 mg Clonidine HCl (Catapres) 0.1 mg PO Q6H PRN PRN Reason: WITHDRAWAL Dextrose (Dextrose 50% Inj) 0 ml IV STAT PRN; Protocol PRN Reason: Hypoglycemia Protocol Docusate Sodium (Colace) 100 mg PO Q8 [facility] Last Admin: 07/17/18 09:44 Dose: 100 mg Enoxaparin Sodium (Lovenox) 40 mg SC DAILY [facility]; Protocol Last Admin: 07/17/18 09:45 Dose: 40 mg Ergocalciferol (Drisdol 50,000 Intl Units Cap) 1 cap PO Q7D [facility] Dextrose (Dextrose 5% In Water 1000 Ml) 1,000 mls @ 0 mls/hr IV .Q0M PRN; Protocol PRN Reason: Hypoglycemia Protocol Lactated Ringer's (Lactated Ringer's) 1,000 mls @ 75 mls/hr IV .[id number] [facility] Last Admin: 07/16/18 10:15 Dose: 75 mls/hr Insulin Human Lispro (Humalog Med) 0 units SC ACHS [facility]; Protocol Last Admin: 07/17/18 12:49 Dose: 1 units Lisinopril (Zestril) 20 mg PO DAILY [facility] Last Admin: 07/17/18 09:44 Dose: 20 mg Lorazepam (Ativan) 0.5 mg IVP Q6H PRN; Protocol PRN Reason: WITHDRAWAL Metoprolol Tartrate (Lopressor) 25 mg PO BID [facility] Last Admin: 07/17/18 09:43 Dose: 25 mg Morphine Sulfate (Morphine) 2 mg IVP Q6H PRN PRN Reason: Pain, moderate (4-7) Last Admin: 07/17/18 05:32 Dose: 2 mg Ondansetron HCl (Zofran Inj) 4 mg IVP Q4H PRN PRN Reason: Nausea/Vomiting Pantoprazole Sodium (Protonix Inj) 40 mg IVP Q12 [facility] Last Admin: 07/17/18 09:45 Dose: 40 mg Polyethylene Glycol (Miralax) 17 gm PO BID [facility] Last Admin: 07/17/18 09:44 Dose: 17 gm - Labs Labs: 07/17/18 05:45 07/17/18 05:45 - Constitutional Appears: Non-toxic, No Acute Distress - Head Exam Head Exam: ATRAUMATIC, NORMOCEPHALIC - Eye Exam Eye Exam: EOMI, PERRL - ENT Exam ENT Exam: Mucous Membranes Moist - Neck Exam Neck Exam: Full ROM - Respiratory Exam Respiratory Exam: Clear to Ausculation Bilateral, NORMAL BREATHING PATTERN - Cardiovascular Exam Cardiovascular Exam: REGULAR RHYTHM, +S1, +S2 - GI/Abdominal Exam GI & Abdominal Exam: Soft, Tenderness, Normal Bowel Sounds - Extremities Exam Extremities Exam: Full ROM. absent: Calf Tenderness, Pedal Edema - Neurological Exam Neurological Exam: Alert, Awake, CN II-XII Intact, Oriented x3 Neuro motor strength exam: Left Upper Extremity: 5, Right Upper Extremity: 5, Left Lower Extremity: 5, Right Lower Extremity: 5 - Psychiatric Exam Psychiatric exam: Normal Affect, Normal Mood - Skin Skin Exam: Dry, Intact Assessment and Plan - Assessment and Plan (Free Text) Assessment: 57 year old male with past medical history of recent UTI, HTN, HLD, cardiomyopathy who is admitted for abdominal pain, elevated lipase consistent with pancreatitis Plan: Acute pancreatitis Elevated lipase, abdominal pain, pending MRCP Lipase trended down and then back up today GB US: no US evidence of gallstones or acute cholecystitis, 1.2 cm soft tissue nodule adjacenet to the pancreas may represent enlarged lymp node, hepatomegaly and increased echogenicity of the liver GI consulted and following following recs of MRCP in light of patients allergy to iodine and shellfish precluding him for CT scan with pancreatic protocol, consider elective cholecystectomy Continue liquid diet with advancement as tolerated Continue IV LR fluids Cholelithiasis Gallstones as seen on imaging GI consulted and following Pain control with morphine 2mg Q6H Diabetes Mellitus Type 2 HgA1c 7.7 Continue ISS, hypoglycemia protocol ACHS HTN Continue Lisinopril Continue clonidine Q6H PRN Maintain MAP >65 HLD Continue statin Hx PVD s/p hx angioplasty Continue statin DVT/GI PPX Lovenox Protonix
--- NOTE | 2018-07-17 15:29 | PN ---
DATE: 07/17/2018 SUBJECTIVE: The patient is lying in bed. He had some lower abdominal pain last night. He denies any nausea, vomiting. He is awaiting MRCP. PHYSICAL EXAMINATION: VITAL SIGNS: Reveal temperature of 98, blood pressure 151/93, heart rate of 77. HEENT: Reveals sclerae to be white. Conjunctivae pink. NECK: Supple. CHEST: Lungs are clear. HEART: Exam reveals a regular rate and rhythm. ABDOMEN: Soft. Mild lower abdominal tenderness. No rebound, no guarding. EXTREMITIES: Show no edema. LABORATORY DATA: Reveal normal liver enzymes. White blood cell count 7.5. Chemistries reveal amylase 169, lipase of 954. IMPRESSION: Acute pancreatitis in a patient with a history of gallstones. Recent imaging did not reveal gallstones. I suspect that the patient passed a stone. His liver enzymes are normal. He did have a 1.2 cm soft tissue abnormality adjacent to the pancreas on ultrasound. RECOMMENDATIONS: 1. Await MRCP for further evaluation of the peripancreatic lesion. 2. I will downgrade his diet to clear liquids. 3. Follow amylase and lipase. Andrew Rodriguez MD
[2018-07-17] MEDS: Lactated Ringer's 1,000 ML IV SCH (18:27)
[2018-07-18] MEDS: Morphine 2 mg/ml ISec IVP PRN (00:03)
[2018-07-18 06:48] LABS: ALB/GLOB RATIO 1.2 (1.1-1.8); ALBUMIN 3.6 g/dL (3.0-4.8); ALT/SGPT 31 U/L (7-56); AMYLASE 97 U/L (35-125); AST/SGOT 19 U/L (17-59); BILIRUBIN,DIRECT 0.2 mg/dL (0.0-0.4); BLOOD UREA NITROGEN 7 mg/dL (7-21); CALCIUM 9.8 mg/dL (8.4-10.5); GFR NON-AFRICAN AMERICAN > 60; LIPASE 628 U/L (23-300)
[2018-07-18] MEDS: Magnesium Sulfate 2 gm/50 ml 2 GM/50 ML BAG IVPB SCH ×2 (09:00→12:03)
[2018-07-18] MEDS: Insulin Lispro (humaLOG) MEDIUM Coverage SC SCH ×3 (09:00→17:23)
[2018-07-18] MEDS: Cilostazol 100 mg Tab UD PO SCH ×2 (10:25→17:24)
[2018-07-18] MEDS: POLYETHYLENE GLYCOL 3350 17 GM/Dose PACKET PO SCH ×2 (10:25→17:24)
[2018-07-18] MEDS: Enoxaparin 40 mg Syringe SC SCH (10:25)
--- NOTE | 2018-07-18 10:44 | PN ---
DATE: 07/18/2018 SUBJECTIVE: The patient is lying in bed. His abdominal pain is less. He denies any nausea, vomiting. He remains constipated. OBJECTIVE: VITAL SIGNS: Reveal temperature of 97.9, blood pressure 169/89, heart rate of 99. HEENT: Reveal sclerae to be white. Conjunctivae pink. NECK: Supple. CHEST: Reveal lungs to be clear. HEART: Reveals regular rate and rhythm. ABDOMEN: Soft, nontender. EXTREMITIES: Show no edema. MRCP reveals no pancreatic mass. LABORATORY DATA: His serum lipase is down to 628, amylase is 97, blood sugar 159. IMPRESSION: A 57-year-old male with acute pancreatitis most likely secondary to a passed gallstone, no pancreatic mass was seen on MRCP. A 1.2 cm soft tissue abnormality was seen adjacent to the pancreas. I am unsure what this is but it may be a lymph node. RECOMMENDATIONS: 1. The patient will need elective cholecystectomy. 2. He will need followup of this soft tissue abnormality adjacent to the pancreas with a repeat ultrasound in 3 months to check for stability of size. If there is an increase in size, the patient will need an endoscopic ultrasound with biopsy. Andrew Rodriguez MD
[2018-07-18 12:58] LABS: GLYCOMARK(R) 12.3 mcg/mL (7.3-36.6)
--- NOTE | 2018-07-18 13:31 | PN ---
DATE: 07/18/2018 SUBJECTIVE: The patient is in room 370, bed 2. Overnight nurse's notes were reviewed and no adverse events were documented. The patient was downgraded to clear liquid diet by Gastroenterology yesterday because of rebound elevation of the lipase of greater than 900. The patient is presently on clear liquid diet. PHYSICAL EXAMINATION: VITAL SIGNS: T-max 98.5, heart rate 74, blood pressure 154/90, respiration 19, O2 sat 96 percent. The patient has been refusing his blood pressure medicine for unknown reason despite my multiple recommendations to comply with the treatment plan, medications, etc. Head examination normocephalic, atraumatic. HEENT examination shows pinkish conjunctivae. Anicteric sclerae. Dry oral mucosa. NECK: No neck rigidity. CHEST: Kyphosis. LUNGS: Show no audible crackle, rales or wheezing. CARDIOVASCULAR: S1, S2, regular rhythm. ABDOMEN: Soft. Positive bowel sounds. Mild periumbilical deep tenderness, no rebound tenderness. No costovertebral angle tenderness. No epigastric or periumbilical tenderness. No right upper quadrant tenderness. Genitalia: Male. No palpable hepatosplenomegaly. RECTAL: Deferred. EXTREMITIES: Extremity shows no pitting edema, no calf tenderness, no Homans sign. NEUROLOGICAL: The patient is alert, awake, oriented x3. Cranial nerves II-XII are intact. Gait examination is independent. VASCULAR: Palpable pulses. Plantars are downward. DTRs are 2+. MUSCULOSKELETAL: As per the body mass index. LABORATORY DATA: On 07/18/2018, sodium 143, potassium 4.2, chloride 102, CO2 of 29, BUN 7, creatinine 0.9, glucose 159. Calcium 9.8, phosphorus 3.4, magnesium 1.6. HIV-1 and 2 fourth generation is negative. Hepatitis A, B, C is negative. Alk phos 149. Amylase is normal at 97. Lipase is down to 628. MRCP which was ordered by the Gastroenterology has been read as negative for any pancreatic or peripancreatic mass. IMPRESSION: 1. Acute pancreatitis, etiology unclear, versus questionable and possible acute gallstone pancreatitis. 2. Peripancreatic lymph node. 3. Hypomagnesemia. 4. [id number] diabetes mellitus. 5. Acute pancreatitis with elevated amylase and lipase, slowly resolving. 6. Rebound elevation of lipase secondary to diet advancement. 7. Hypertension. 8. Poor compliance and noncompliance. 9. Hyperlipidemia. 10. History of cholelithiasis. 11. History of peripheral vascular disease of the lower extremity. 12. History of diabetic foot ulceration. 13. History of nonobstructive coronary artery disease. PLAN: At this time, the patient is to be continued on IV fluid, GI and DVT prophylaxis. The patient at present is still on clear liquid diet. The patient will be continued on serial repeat labs in the morning with monitoring of amylase and lipase, serial chemistries and LFTs. The patient is to be continued on IV fluids, IV Protonix, IV Zofran, GI and DVT prophylaxis ordered. The patient is awaiting further evaluation recommendation by Gastroenterology.. Once the patient's lab data has improved significantly, we will consider increasing the patient's diet, and if the patient tolerates the diet, we will await recommendation and clearance by Gastroenterology for discharge clearance. The patient has been updated about his diagnostic test results, recommendation, treatment plan and management plan at length on a daily basis and even today, all questions concerned answered. The patient does not appear to be happy staying in the hospital, and in the past few days, the patient has expressed his intentions of signing out against medical advice, which I have advised the patient against it and explaining the patient all risks and consequences. The patient will be continued on the therapeutic intervention as per the MAR of today, which was reviewed. Magnesium sulfate riders have been ordered x2 doses. Repeat lab ordered for the morning. Dictated and electronically signed, not read. Freeman Montoya MD
[2018-07-18 17:29] VITALS: BP 146/85; PULSE 100
[2018-07-18 18:26] VITALS: RESP 20; TEMP 97.2; O2SAT 95
[2018-07-23] MEDS ORDERED: Ergocalciferol 50,000 Intl Units Cap PO SCH (10:00)
== END 2018-07-18 18:29 | disposition home or self-care (01) | DRG 439 ==
LOC: ED 15:18 → ERH 17:56 → 3RSO 19:36
PROVIDERS: ADMIT Internal Medicine; ATTEND Internal Medicine
DX: K85.10 Biliary acute pancreatitis without necrosis or infection (principal); I42.0 Dilated cardiomyopathy; E11.40 Type 2 diabetes mellitus with diabetic neuropathy, unspecified; E11.51 Type 2 diabetes mellitus with diabetic peripheral angiopathy without gangrene; E11.65 Type 2 diabetes mellitus with hyperglycemia; F12.90 Cannabis use, unspecified, uncomplicated; E78.00 Pure hypercholesterolemia, unspecified; E78.5 Hyperlipidemia, unspecified; K80.20 Calculus of gallbladder without cholecystitis without obstruction; K76.0 Fatty (change of) liver, not elsewhere classified; R16.0 Hepatomegaly, not elsewhere classified; E55.9 Vitamin D deficiency, unspecified; I11.9 Hypertensive heart disease without heart failure; I25.10 Atherosclerotic heart disease of native coronary artery without angina pectoris; K59.00 Constipation, unspecified; Z91.19 Patient's noncompliance with other medical treatment and regimen; Z87.891 Personal history of nicotine dependence